=== PATIENT | female | born 1990 | race Caucasian/White ===

== ENCOUNTER 2021-08-31 11:29 | Emergency (ER) | payer OTHER ==
[~2021-08-31] VITALS: Ht 162.6 cm; Wt 45.4 kg
[2021-08-31] MEDS ORDERED: ZOLOFT50 MG PO (12:02)
[2021-08-31] MEDS ORDERED: RESTORA CAPSUL1 EACH (12:03)
[2021-08-31] MEDS ORDERED: DICYCLOMIN10 MG/5 M1 (12:03)
== END 2021-08-31 15:26 | disposition home or self-care (01) ==
LOC: ER 11:29
DX: K52.9 Noninfective gastroenteritis and colitis, unspecified (principal); Z03.818 Encounter for observation for suspected exposure to other biological agents ruled out